=== PATIENT | female | born 1950 | race Caucasian/White ===

== ENCOUNTER 2018-08-07 16:12 | Emergency (ER) | payer BC ==
[2018-08-07 16:24] VITALS: BP 118/75
--- NOTE | 2018-08-07 17:16 | ED ---
Skin Complaint - HPI Summary HPI Summary: 68-year-old female presents for rash to her right groin that began approximately one week ago. She states she's been helping her daughter who was hospitalized for demise care for her grandchildren over the past couple of weeks. She states that 2 weeks ago she was outdoors with her granddaughter and removed a tick from her granddaughter however she is not aware of any personal tick bite. She states the rash is pruritic but nonpainful. She also has noted some URI symptoms including mild nasal congestion, sore throat, and a nonproductive cough over the past week but states that the symptoms are currently improving. Denies fever, chills, ear pain or drainage, sinus pain or pressure, chest pain, shortness of breath, myalgias, joint pain or swelling. - History of Current Complaint Chief Complaint: UCSkin Time Seen by Provider: 08/07/18 16:41 Stated Complaint: RASH,POSS TICK Hx Obtained From: Patient Onset/Duration: Started Weeks Ago - 1 Pain Intensity: 0 Skin Location: Other: - right groin Character: Pruritus, Redness Aggravating Symptom(s): Nothing Alleviating Symptom(s): Nothing - Allergy/Home Medications Allergies/Adverse Reactions: Allergies Allergy/AdvReac Type Severity Reaction Status Date / Time No Known Allergies Allergy Verified 04/15/14 18:33 PMH/Surg Hx/FS Hx/Imm Hx Endocrine/Hematology History: Denies: Hx Diabetes, Hx Thyroid Disease Cardiovascular History: Denies: Hx Hypertension Respiratory History: Denies: Hx Asthma, Hx Chronic Obstructive Pulmonary Disease (COPD) GI History: Denies: Hx Ulcer Infectious Disease History: No Infectious Disease History: Denies: Hx Hepatitis, Hx Human Immunodeficiency Virus (HIV), Traveled Outside the [place] in Last 30 Days - Family History Family History: Noncontributory - Social History Occupation: Employed Full-time Lives: With Family Alcohol Use: Rare Substance Use Type: Reports: None Smoking Status (MU): Never Smoked Tobacco Review of Systems Constitutional: Negative Eyes: Negative Positive: Sore Throat, Nasal Discharge Cardiovascular: Negative Positive: Cough Gastrointestinal: Negative Musculoskeletal: Negative Positive: Rash All Other Systems Reviewed And Are Negative: Yes Physical Exam Triage Information Reviewed: Yes Vital Signs On Initial Exam: Initial Vitals Temp Pulse Resp BP Pulse Ox 97.9 F 79 18 118/75 99 08/07/18 16:20 08/07/18 16:20 08/07/18 16:20 08/07/18 16:20 08/07/18 16:20 Vital Signs Reviewed: Yes Appearance: Positive: Well-Appearing, No Pain Distress, Well-Nourished Skin: Positive: Warm, Dry, Scaly Skin/Lesions - Pruritic, erythematous, scaly rash to right groin in skin folds Eyes: Positive: Conjunctiva Clear. Negative: Discharge ENT: Positive: Pharyngeal erythema - Mild with cobblestoning, Nasal congestion, TMs normal, Uvula midline. Negative: Nasal drainage, Tonsillar swelling, Tonsillar exudate, Sinus tenderness Neck: Positive: Supple, Nontender, No Lymphadenopathy Respiratory/Lung Sounds: Positive: Clear to Auscultation, Breath Sounds Present Cardiovascular: Positive: Normal, RRR, S1, S2 Neurological: Positive: Alert, Oriented to Person Place, Time Psychiatric: Positive: Affect/Mood Appropriate Diagnostics - Vital Signs Vital Signs Temp Pulse Resp BP Pulse Ox 08/07/18 16:20 97.9 F 79 18 118/75 99 - Laboratory Lab Statement: Any lab studies that have been ordered have been reviewed, and results considered in the medical decision making process. Course/Dx - Course Course Of Treatment: 68 year old female with 1 week history of pruritic rash to right groin and URI symptoms. She has concerned for possibility of Lyme disease as she removed a tick from her granddaughter while they were outdoors 2 weeks ago. Her exam revealed a erythematous, scaly rash to right groin consistent with intertrigo. She also had some nasal congestion and mild pharyngeal erythema consistent with a viral URI especially since her symptoms are resolving. I think Lyme disease is unlikely without a history of tick bite but will test today. Patient was informed that if this test is negative she should be retested in 2 weeks to confirm this finding as it may be too soon for conversion if her bite was only 2 weeks ago. Recommend antifungal cream for rash and symptomatic treatment of URI symptoms pending Lyme results. Patient verbalizes understanding and agrees with POC. - Diagnoses Provider Diagnoses: Intertrigo, Viral URI Discharge - Sign-Out/Discharge Documenting (check all that apply): Patient Departure All imaging exams completed and their final reports reviewed: No Studies - Discharge Plan Condition: Stable Disposition: HOME Prescriptions: Clotrimazole 1% TOPICAL (NF) [Lotrimin 1% TOPICAL (NF)] 1 % EX BID 14 Days #1 cre Patient Education Materials: Upper Respiratory Infection (ED), Skin Yeast Infection (ED) Referrals: Flor Hall MD [Primary Care Provider] - Additional Instructions: Your rash appears to be fungal skin infection and your other symptoms are consistent with a viral upper respiratory infection. Since you did have an exposure to ticks, we will test you today for Lyme disease. If this positive, we will start you on an appropriate antibiotic treatment. If this is negative, I would recommend that you follow up with your primary care provider in 2 weeks for retesting. Apply clotrimazole cream to affected area twice a day for 2 weeks. Use a saline rinse kit such as Netti Pot or NeilMed to help thin any nasal secretions and promote drainage. Use salt water gargles several times a day for your sore throat. Take acetaminophen (Tylenol) or ibuprofen (Advil, Motrin) according to directions as needed for aches, pain, or fever. - Billing Disposition and Condition Condition: STABLE Disposition: Home - Attestation Statements Provider Attestation: Per institutional requirements, I have reviewed the chart, however, I was not consulted specifically or made aware of this patient by the midlevel provider. I did not personally evaluate, interact with , or disposition this patient.
== END 2018-08-07 17:40 | disposition home or self-care (01) ==
LOC: UCEAST 16:12
DX: L30.4 Erythema intertrigo (principal); J06.9 Acute upper respiratory infection, unspecified
CPT/HCPCS: 86618; 99202; G0463

== ENCOUNTER 2018-08-11 21:01 | Emergency (ER) | payer BC ==
[2018-08-11 21:14] VITALS: BP 118/75
--- NOTE | 2018-08-11 22:03 | UC ---
Respiratory Complaint HPI - HPI Summary HPI Summary: 68 y/o female with coughing x 1 week, mild fever, fatigue last week, denies GI upset, fever, chills, cough sometimes productive. was seen last week, concerned for lyme disease though no know tick bite. negative lyme serology. 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 Onset/Duration: Gradual Onset, Lasting Weeks - 2 Severity Initially: Mild Severity Currently: Mild Pain Intensity: 0 Pain Scale Used: 0-10 Numeric Character: Cough: Nonproductive Aggravating Factors: Deep Breaths - Allergies/Home Medications Allergies/Adverse Reactions: Allergies Allergy/AdvReac Type Severity Reaction Status Date / Time No Known Allergies Allergy Verified 08/11/18 21:14 PMH/Surg Hx/FS Hx/Imm Hx Previously Healthy: Yes - Surgical History Surgical History: None - Family History Family History: Noncontributory - Social History Alcohol Use: Rare Substance Use Type: None Smoking Status (MU): Never Smoked Tobacco Review of Systems Skin: Rash Respiratory: Cough Is Patient Immunocompromised?: No All Other Systems Reviewed And Are Negative: Yes Physical Exam Triage Information Reviewed: Yes Appearance: Well-Appearing, No Pain Distress, Well-Nourished Vital Signs: Initial Vital Signs Temp 98.1 F 08/11/18 21:06 Pulse 69 08/11/18 21:06 Resp 16 08/11/18 21:06 BP 118/75 08/11/18 21:06 Pulse Ox 98 08/11/18 21:06 Eyes: Positive: Conjunctiva Clear ENT: Positive: Pharynx normal Neck: Positive: Supple, Nontender, No Lymphadenopathy Respiratory: Positive: Chest non-tender, Lungs clear, Normal breath sounds, No respiratory distress Cardiovascular: Positive: RRR, No Murmur Skin: Positive: Other - erythema in R groin sking fold extending from groin to lateral thigh along skin folds, small satilite lesions UC Diagnostic Evaluation - Laboratory O2 Sat by Pulse Oximetry: 98 Respiratory Course/Dx - Course Course Of Treatment: skin candidia- cream represribed, oral medication. acute bronchitis- conservative treatment - Differential Dx/Diagnosis Provider Diagnoses: acute bronchitis, candidasis, skin folds R groin Discharge - Sign-Out/Discharge Documenting (check all that apply): Patient Departure All imaging exams completed and their final reports reviewed: No Studies - Discharge Plan Condition: Good Disposition: HOME Prescriptions: Clotrimazole 1% TOPICAL (NF) [Lotrimin 1% TOPICAL (NF)] 1 % EX BID 14 Days #1 cre Fluconazole 100 MG TAB* [Diflucan 100 MG TAB*] 100 mg PO WEEKLY #2 tab Patient Education Materials: Acute Bronchitis (ED), Skin Yeast Infection (ED) Referrals: Flor Hall MD [Primary Care Provider] - Additional Instructions: - oral antifungal weekly x 2 weeks, follow up with primary physician after this for treatment - Follow up with primary physician within 2 weeks for repeat Lyme titer - Increase fluid intake - Cough medication over the counter - Billing Disposition and Condition Condition: GOOD Disposition: Home - Attestation Statements Provider Attestation: I was available for consult. This patient was seen by the DAMON. The patient was not presented to, seen by, or examined by me. -Rashawn
== END 2018-08-11 22:20 | disposition home or self-care (01) ==
LOC: UCEAST 21:01
DX: J20.9 Acute bronchitis, unspecified (principal); B37.2 Candidiasis of skin and nail
CPT/HCPCS: 99212; G0463